=== PATIENT | female | born 1995 | race African-American/Black ===

== ENCOUNTER 2017-02-22 19:14 | Emergency (ER) | payer SELFPAY ==
[~2017-02-22] VITALS: Ht 162.6 cm; Wt 64.1 kg
[2017-02-22 19:17] VITALS: TEMP 37.1; Ht 162.6 cm; Wt 64.1 kg
[2017-02-22] MEDS ORDERED: KETOROLAC TROMETHAMINE 15 MG/ML VIAL IV STA (19:37)
[2017-02-22] MEDS ORDERED: KETOROLAC TROMETHAMINE 30 MG/ML VIAL ONE (19:41)
[2017-02-22 19:54] LABS: URINE APPEARANCE CLOUDY (CLEAR); URINE BILIRUBIN NEG (NEG); URINE COLOR DK YELLOW; URINE EPITHELIAL CELL AUTO >30 /lpf (0-5); URINE NITRITE NEG (NEG); URINE PH 5.5 (4.5-7.5); URINE SPECIFIC GRAVITY 1.042 (1.000-1.030); UROBILINOGEN NEG (NEG); ZZUR CULT IF INDIC CLEAN CATCH YES
[2017-02-22 19:56] LABS: MANUAL MICROSCOPIC REQUIRED? NO; REVIEW REQ? NO
[2017-02-22 20:05] LABS: BASO % 0.1 %; BASO ABS # 0.01 K/uL (0-0.2); COMPLETE YES; EOS % 1.3 %; HEMATOCRIT 38.4 % (37-47); IG% 0.1 %; LYMPH % 40.6 %; LYMPH ABS # 2.76 K/uL (1.2-3.4); MEAN CELL VOLUME 81.5 fL (80-100); MEAN CORPUSCULAR HEMOGLOBIN 26.3 pg (25-34); MEAN CORPUSCULAR HGB CONC 32.3 g/dl (32-36); MEAN PLATELET VOLUME 9.6 fL (7.4-10.4); MONO % 9.1 %; NEUT % 48.8 %; PLATELET COUNT 257 K/uL (130-400); RED BLOOD COUNT 4.71 M/uL (4.2-5.4)
[2017-02-22 20:30] LABS: ALB/GLOB RATIO 0.8 (0.9-2); ALKALINE PHOSPHATASE 49 U/L (45-117); ALT/SGPT 31 U/L (12-78); BLOOD UREA NITROGEN 17 mg/dl (7-18); BUN/CREATININE RATIO 19.6 (10-20); CALCIUM 8.9 mg/dl (8.5-10.1); CARBON DIOXIDE 27 mmol/L (21-32); CHLORIDE 105 mmol/L (98-107); CREATININE 0.85 mg/dl (0.60-1.20); GLUCOSE 73 mg/dl (70-99); SODIUM 137 mmol/L (136-145)
--- NOTE | 2017-02-22 21:32 | DIAGNOSTIC IMAGING REPORT ---
PELVIC ULTRASOUND, TRANSABDOMINAL AND TRANSVAGINAL HISTORY: pelvic pain COMPARISON: None. FINDINGS: Uterus: 6.3 x 3.1 x 3.6 cm. No masses. Endometrial stripe: 8 mm in thickness. Right ovary: The right ovary is enlarged measuring 4.7 x 4.7 x 4.5 cm. This is primarily due to a 4.2 x 4.2 x 4.0 cm complex lesion. This contains internal echoes and peripheral echogenic material as well as a few thickened septations. This does not demonstrate color flow and therefore favors a hemorrhagic cyst. The peripheral ovarian tissue appears to demonstrate normal color flow. Left ovary: Normal in size and demonstrates normal color flow. A few small follicles/cysts. Miscellaneous:Trace pelvic free fluid. IMPRESSION: 1. A 4.2 x 4.2 x 4.0 cm complex lesion within the right ovary which likely represents a hemorrhagic cyst. Follow-up pelvic ultrasound in 6-8 weeks is recommended to ensure resolution. 2. Normal left ovary. 3. Trace pelvic free fluid. 4. There is normal color-flow within the ovarian parenchyma bilaterally. Therefore, ovarian torsion is considered less likely but remains a clinical diagnosis. Electronically signed by: Ivan Spencer M.D. 02/22/2017 9:31 PM Dictated Date/Time: 02/22/2017 9:27 PM
[2017-02-22] MEDS ORDERED: HYDR-5688 PO (22:14)
[2017-02-22] MEDS ORDERED: NORCO 5/325MG HOME PACK PO ONE (22:15)
--- NOTE | 2017-02-22 22:15 | EMERGENCY ROOM VISIT NOTE ---
History First contact with patient: 19:24 Chief Complaint: PELVIC PAIN Stated Complaint: PELVIC PAIN History of Present Illness The patient is a 21 year old female who presents to the Emergency Room with complaints of pelvic pain. The patient reports she had some mild pelvic pain last night. Her symptoms started again approximately 6 hours ago and have worsened since then. She reports a dull pain across her lower abdomen/pelvic region. She rates her discomfort a 7/10. She took ibuprofen without relief. She states she is due for her menstrual period soon. She denies any chance of . She denies any concern for STD. Patient denies any nausea/vomiting , urinary symptoms, changes in bowel movements or abnormal vaginal discharge. She denies any history of similar symptoms. Review of Systems A complete 10 point review of systems was reviewed with the patient with pertinent positives and negatives as per history of present illness. All else were negative. Social History Smoking Status: Never Smoker Marital Status: single Housing Status: lives with roommate Occupation Status: [employer] student Current/Historical Medications Scheduled PRN Hydrocodone/Acetaminophen 5MG/325MG ([place] 5MG/325MG), 1-2 TABLET PO Q4H PRN for Pain Physical Exam Vital Signs Date Time Temp Pulse Resp B/P (MAP) Pulse Ox O2 Delivery O2 Flow Rate FiO2 02/22/17 22:24 86 18 127/83 98 17 19:17 37.1 80 18 130/86 97 Room Air Physical Exam VITALS: Vitals are noted on the nurse's note and reviewed by myself. Vital signs stable. GENERAL: This is a 21-year-old female, in no acute distress, nondiaphoretic, well-developed well-nourished. HEART: Regular rate and rhythm without murmurs gallops or rubs. LUNGS: Clear to auscultation bilaterally without wheezes, rales or rhonchi. ABDOMEN: Positive bowel sounds x 4. Soft, nondistended. There is mild tenderness to palpation across the lower abdomen. There is no guarding or rebound tenderness. PELVIC: No cervicitis. No cervical motion tenderness. Mild right adnexal tenderness. NEURO: Patient was alert and oriented to person place and time. Medical Decision & Procedures ER Provider Diagnostic Interpretation: PELVIC ULTRASOUND, TRANSABDOMINAL AND TRANSVAGINAL HISTORY: pelvic pain COMPARISON: None. FINDINGS: Uterus: 6.3 x 3.1 x 3.6 cm. No masses. Endometrial stripe: 8 mm in thickness. Right ovary: The right ovary is enlarged measuring 4.7 x 4.7 x 4.5 cm. This is primarily due to a 4.2 x 4.2 x 4.0 cm complex lesion. This contains internal echoes and peripheral echogenic material as well as a few thickened septations. This does not demonstrate color flow and therefore favors a hemorrhagic cyst. The peripheral ovarian tissue appears to demonstrate normal color flow. Left ovary: Normal in size and demonstrates normal color flow. A few small follicles/cysts. Miscellaneous:Trace pelvic free fluid. IMPRESSION: 1. A 4.2 x 4.2 x 4.0 cm complex lesion within the right ovary which likely represents a hemorrhagic cyst. Follow-up pelvic ultrasound in 6-8 weeks is recommended to ensure resolution. 2. Normal left ovary. 3. Trace pelvic free fluid. 4. There is normal color-flow within the ovarian parenchyma bilaterally. Therefore, ovarian torsion is considered less likely but remains a clinical diagnosis. Laboratory Results 02/22/17 19:50 Red Blood Count 4.71, Mean Corpuscular Volume 81.5, Mean Corpuscular Hemoglobin 26.3, Mean Corpuscular Hemoglobin Concent 32.3, Mean Platelet Volume 9.6, Neutrophils (%) (Auto) 48.8, Lymphocytes (%) (Auto) 40.6, Monocytes (%) (Auto) 9.1, Eosinophils (%) (Auto) 1.3, Basophils (%) (Auto) 0.1, Neutrophils # (Auto) 3.31, Lymphocytes # (Auto) 2.76, Monocytes # (Auto) 0.62, Eosinophils # (Auto) 0.09, Basophils # (Auto) 0.01 02/22/17 19:50 Test 02/22/17 19:28 02/22/17 19:50 Urine Color DK YELLOW Urine Appearance CLOUDY (CLEAR) Urine pH 5.5 (4.5-7.5) Urine Specific [place] 1.042 (1.000-1.030) Urine Protein TRACE (NEG) Urine Glucose (UA) NEG (NEG) Urine Ketones 1+ (NEG) Urine Occult Blood NEG (NEG) Urine Nitrite NEG (NEG) Urine Bilirubin NEG (NEG) Urine Urobilinogen NEG (NEG) Urine Leukocyte Esterase NEG (NEG) Urine WBC (Auto) 1-5 /hpf (0-5) Urine RBC (Auto) 0-4 /hpf (0-4) Urine Hyaline Casts (Auto) 5-10 /lpf (0-5) Urine Epithelial Cells (Auto) >30 /lpf (0-5) Urine Bacteria (Auto) 1+ (NEG) Urine Test NEG (NEG) White Blood Count 6.80 K/uL (4.8-10.8) Red Blood Count 4.71 M/uL (4.2-5.4) Hemoglobin 12.4 g/dL (12.0-16.0) Hematocrit 38.4 % (37-47) Mean Corpuscular Volume 81.5 fL (80-100) Mean Corpuscular Hemoglobin 26.3 pg (25-34) Mean Corpuscular Hemoglobin Concent 32.3 g/dl (32-36) Platelet Count 257 K/uL (130-400) Mean Platelet Volume 9.6 fL (7.4-10.4) Neutrophils (%) (Auto) 48.8 % Lymphocytes (%) (Auto) 40.6 % Monocytes (%) (Auto) 9.1 % Eosinophils (%) (Auto) 1.3 % Basophils (%) (Auto) 0.1 % Neutrophils # (Auto) 3.31 K/uL (1.4-6.5) Lymphocytes # (Auto) 2.76 K/uL (1.2-3.4) Monocytes # (Auto) 0.62 K/uL (0.11-0.59) Eosinophils # (Auto) 0.09 K/uL (0-0.5) Basophils # (Auto) 0.01 K/uL (0-0.2) RDW Standard Deviation 40.7 fL (36.4-46.3) RDW Coefficient of Variation 13.5 % (11.5-14.5) Immature Granulocyte % (Auto) 0.1 % Immature Granulocyte # (Auto) 0.01 K/uL (0.00-0.02) Anion Gap 5.0 mmol/L (3-11) Est Creatinine Clear Calc Drug Dose 89.7 ml/min Estimated GFR () 112.7 Estimated GFR (Non- 97.3 BUN/Creatinine Ratio 19.6 (10-20) Calcium Level 8.9 mg/dl (8.5-10.1) Total Bilirubin 0.5 mg/dl (0.2-1) Aspartate Amino Transf (AST/SGOT) U/L (15-37) Alanine Aminotransferase (ALT/SGPT) 31 U/L (12-78) Alkaline Phosphatase 49 U/L (45-117) Total Protein 8.3 gm/dl (6.4-8.2) Albumin 3.8 gm/dl (3.4-5.0) Globulin 4.5 gm/dl (2.5-4.0) Albumin/Globulin Ratio 0.8 (0.9-2) Medications Administered Medications (Trade) Dose Ordered Sig/Garret Route Start Time Stop Time Status Last Admin Dose Admin Ketorolac Tromethamine (Toradol Inj) 30 mg STK-MED ONCE .ROUTE 02/22/17 19:41 02/22/17 19:42 DC 02/22/17 19:53 15 MG Acetaminophen/ Hydrocodone Bitart ([place] 5/325mg Home Pack) 1 homepack UD ONCE PO 02/22/17 22:15 02/22/17 22:16 DC 02/22/17 22:23 1 HOMEPACK ED Course The patient was evaluated as above. Labs were drawn and IV access was obtained. Patient was medicated with 15 mg Toradol IV. Pelvic ultrasound was performed and read by radiology as above. Patient was reevaluated and findings were discussed. Pelvic exam was performed at this time. Home pack of [place] was ordered for the patient. Discharge instructions were reviewed with the patient. The patient verbalized understanding of my assessment and treatment plan and was discharged home in good condition. Medical Decision Differential diagnosis includes ovarian cyst, ovarian torsion, ectopic , urinary tract infection, pelvic inflammatory disease, among others. The patient is a 21-year-old female who presents today complaining of pelvic pain. Labs revealed no leukocytosis, anemia or concerning electrolyte abnormalities. Urinalysis was not suggestive of infection. Urine was negative. Pelvic ultrasound does show a right ovarian cyst. Toradol was given with little relief. Pelvic exam reveals no cervical motion tenderness and does not concerning for infection. Patient will be given a home pack and prescription of [place] to be used for more severe pain. She is given information for [facility] follow-up as she will require a repeat ultrasound. There is no evidence of torsion on exam, however patient was given warning signs for this and will return if she develops worsening pain, vomiting or other new/concerning symptoms. Conservative measures were discussed with the patient. Based on the patient's presentation and work up, I feel the patient is stable for outpatient treatment. The patient was educated to return to the emergency department for any worsening of their current condition or new/concerning symptoms. She will follow up with [facility]. [place] Drug Monitoring Program Search Results: patient reviewed within database, no issues identified Medication Reconcilliation Current Medication List: was personally reviewed by me Blood Pressure Screening Patient's blood pressure: Normal blood pressure Impression Primary Impression: Right ovarian cyst Departure Information Dispostion Home / Self-Care Condition GOOD Prescriptions Hydrocodone/Acetaminophen 5MG/325MG ([place] 5MG/325MG) Tab 1-2 TABLET PO Q4H Y for Pain, #12 TAB For Initial Treatment Prov: Dulce Valdivia .[place] 02/22/17 Referrals [facility] (PCP) Benjamín Bourne M.D. Patient Instructions [facility] Additional Instructions You have been treated in the Emergency Department for your Abdominal Pain. Laboratory results and imaging studies have ruled out any emergent causes for your abdominal pain which would warrant admission or surgery. Pelvic ultrasound did show an ovarian cyst. Contact [facility] to schedule a follow-up appointment. You should have a repeat ultrasound in a few months. You have been prescribed [place] to be used for pain control. This is a narcotic medication. You cannot drive or consume alcohol while on this medicine. This medicine should only be used for pain that cannot be controlled with over-the- counter pain medicines. For pain control, you can use the following [id number] medicines (if >12 yo): - Regular strength (325mg/tab) Tylenol (acetaminophen) 2 tabs every 4-6 hours as needed. Do not exceed 12 tablets in a 24 hour period. Avoid taking more than 4 grams (4000 mg) of Tylenol per day. This includes any other sources of acetaminophen you may take on a regular basis. - Regular strength (200 mg/tab) Advil (ibuprofen) 1-2 tabs every 4-6 hours as needed. Do not exceed a dose of 3200 mg per day. Drink plenty of water and stay well hydrated. Return to the emergency department if your symptoms persist despite treatment plan outlined above or if the following symptoms occur: Worsening pain, fever, vomiting or any other new/concerning symptoms.
[2017-02-22 22:24] VITALS: BP 127/83; PULSE 86; O2SAT 98
== END 2017-02-22 22:25 | disposition home or self-care (01) ==
LOC: C.EDB 19:16 → C.EDC 22:25
DX: N83.201 Unspecified ovarian cyst, right side (principal)